=== PATIENT | female | born 1955 | race Caucasian/White ===

== ENCOUNTER 2017-11-02 13:10 | Inpatient (IN) | payer MEDICARE, MEDICAID ==
[~2017-11-02] VITALS: Ht 157.5 cm; Wt 94.3 kg
[~2017-11-02 13:10] MED LIST: ATOR10TA PO; CELE-193 PO; FOLI-43 PO; KEP500T PO; LAMO200T2 PO; PARO40TA45 PO
[2017-11-16 12:18] LABS: BASOPHILS % (AUTO) 0.3 % (0-1); EOSINOPHILS # (AUTO) 0.1 X10'3 (0-0.9); EOSINOPHILS % (AUTO) 1.8 % (0-6); LYMPHOCYTES # (AUTO) 2.5 X10'3 (1.1-4.8); LYMPHOCYTES % (AUTO) 30.9 % (21-51); MEAN CORPUSCULAR HEMOGLOBIN 35.2 PG (27.0-31.0); MEAN CORPUSCULAR HGB CONC 34.7 % (33.0-36.5); MEAN CORPUSCULAR VOLUME 101.4 FL (78-98); MEAN PLATELET VOLUME 6.8 FL (7.4-10.4); MONOCYTES # (AUTO) 0.8 X10'3 (0-0.9); NEUTROPHILS # (AUTO) 4.6 X10'3 (1.8-7.7); PRE OP HEMATOCRIT 40.7 % (35.0-45.0); PRE OP HEMOGLOBIN 14.1 g/dL (12.0-16.0); PRE OP PLATELET COUNT 294 X10'3 (140-440); RED BLOOD COUNT 4.01 X10'6 (4.20-5.60); RED CELL DISTRIBUTION WIDTH 12.4 % (11.5-14.5)
[2017-11-16 12:39] LABS: ALBUMIN 3.9 G/DL (3.4-5.0); ALBUMIN/GLOBULIN RATIO 1.2 (1.1-1.5); ALKALINE PHOSPHATASE 117 IU/L (46-116); BLOOD UREA NITROGEN 21 MG/DL (7-18); BUN/CREATININE RATIO 28.8 (6.6-38.0); CALCIUM 9.4 MG/DL (8.5-10.1); CHLORIDE 105 MMOL/L (99-107); CREATININE 0.73 MG/DL (0.40-0.90); PRE OP ALT 17 U/L (30-65); PRE OP ANION GAP 6 (8-16); PRE OP AST 14 U/L (10-37); PRE OP BILIRUB, TOTAL 0.3 MG/DL (0.0-1.0); PRE OP GLUCOSE 97 MG/DL (70-104); PRE OP POTASSIUM 4.2 MMOL/L (3.4-5.1); PRE OP SODIUM 143 MMOL/L (135-145); TOTAL CARBON DIOXIDE 31.8 MMOL/L (24-32); TOTAL PROTEIN 7.2 G/DL (6.4-8.2); eGFR 81 ML/MIN
[2017-11-16] MEDS ORDERED: CAL/MG/ZINC PO (13:04)
[2017-11-16] MEDS ORDERED: CRAN1CAP9 PO (13:04)
[2017-11-16] MEDS ORDERED: CHOL200016 PO (13:04)
[2017-11-16] MEDS ORDERED: CYAN-19 PO (13:04)
[2017-11-23] MEDS ORDERED: LYR75C PO (10:21)
[2017-11-23] MEDS ORDERED: LEVO25TA2 PO (10:21)
[2017-11-24] VITALS (22 sets, daily range): BP systolic 109–168; BP diastolic 56–98
[2017-11-24] MEDS ORDERED: ringers solution, lacted 1,000 ML IV SCH ×2 (05:00→11:20)
[2017-11-24] MEDS ORDERED: ceFAZolin 2gm in dextrose, iso 100 ML IV ONE (05:30)
[2017-11-24] MEDS ORDERED: famotidine 20mg tablet PO ONE (05:30)
[2017-11-24] MEDS ORDERED: cefazolin/dext.iso 2gm/50ml 50 ML IV ONE (05:30)
[2017-11-24] MEDS ORDERED: VANCOMYCIN INJ 1000 MG in NORMAL SALINE 250ml IV.SOLN IV ONE (05:30)
[2017-11-24] MEDS ORDERED: ROPIVAcaine 0.5% (5mg/ml) 30ml vial ONE ×2 (09:13→10:57)
[2017-11-24] MEDS ORDERED: ketorolac trometh. 30mg/ml inj. ONE (09:13)
[2017-11-24] MEDS ORDERED: sevoflurane 250ml liquid IH ONE (10:05)
[2017-11-24] MEDS ORDERED: EPHEDRINE SULFATE/0.9% NACL/PF 50 MG/5 ML ML IJ ONE (10:05)
[2017-11-24] MEDS ORDERED: atropine 1 MG/1 ML vial ONE (10:05)
[2017-11-24] MEDS ORDERED: cloNIDine hcl/PF 100mcg/ml inj ONE (10:27)
[2017-11-24] MEDS ORDERED: ondansetron/PF 4mg/2ml inj IV PRN ×2 (11:20→12:20)
[2017-11-24] MEDS ORDERED: HYDROmorphone inj. 0.5 MG/0.5 ML DISP.SYRIN IV PRN ×2 (11:20)
[2017-11-24] MEDS ORDERED: meperidine/PF 25mg/ml syringe IV PRN (11:20)
[2017-11-24] MEDS ORDERED: magnesium hydroxide 30ml (MOM) UD suspension PO PRN (12:20)
[2017-11-24] MEDS ORDERED: bisacodyl 10mg suppository rectal RC PRN (12:20)
[2017-11-24] MEDS ORDERED: diphenhydrAMINE 25mg capsule PO PRN (12:20)
[2017-11-24] MEDS ORDERED: acetaminophen 325mg tablet PO PRN (12:20)
[2017-11-24] MEDS ORDERED: metoclopramide 5 mg/ml inj IV PRN (12:20)
[2017-11-24] MEDS ORDERED: CADD PCA waste documentation MC PRN (12:20)
[2017-11-24] MEDS ORDERED: oxyCODONE IR 5mg (immed. release) tablet PO PRN ×2 (12:20)
[2017-11-24] MEDS ORDERED: naloxone 0.4 mg/ml inj IV PRN (12:20)
[2017-11-24] MEDS: meperidine/PF 25mg/ml syringe IV PRN ×4 (12:25→12:49)
[2017-11-24] MEDS: acetaminophen 1,000mg/100ml IV 100 ML IV SCH (12:53)
[2017-11-24] MEDS: HYDROmorphone/NS 1 mg/ml CADD 50 ML IV SCH ×7 (13:00→23:00)
[2017-11-24] MEDS ORDERED: ketorolac trometh. 30mg/ml inj. IV ONE (13:00)
[2017-11-24] MEDS: ceFAZolin 1GM/D5W- ADD-VANTAGE 50 ML IV SCH (16:17)
[2017-11-24] MEDS: potassium cl 20mEq in 1/2 NS 1,000 ML IV SCH ×2 (16:17→20:19)
[2017-11-24] MEDS: sennosides 8.6mg tablet PO SCH (19:31)
[2017-11-24] MEDS: sennosides/docusate sodium tablet PO SCH (19:32)
[2017-11-24] MEDS: pregabalin 75mg capsule PO SCH (19:32)
[2017-11-24] MEDS: ascorbic acid 500mg tablet PO SCH (19:32)
[2017-11-24] MEDS: levetiracetam 250mg tablet PO SCH (19:33)
[2017-11-24] MEDS ORDERED: vancomycin/NS 1 GM ADD-VANTAGE 250 ML IV SCH (20:00)
[2017-11-24] MEDS ORDERED: VITAMIN E ACETATE PO SCH (20:00)
[2017-11-24] MEDS ORDERED: VIT C PO SCH (20:00)
[2017-11-24] MEDS ORDERED: [UNRECOGNIZED DRUG - OTHER] PO SCH (20:00)
[2017-11-24] MEDS: atorvastatin 10mg tablet PO SCH (21:02)
[2017-11-25] MEDS: ceFAZolin 1GM/D5W- ADD-VANTAGE 50 ML IV SCH (00:09)
[2017-11-25] MEDS: HYDROmorphone/NS 1 mg/ml CADD 50 ML IV SCH ×12 (01:00→23:00)
[2017-11-25 02:00] VITALS: BP 110/55
[2017-11-25] MEDS: potassium cl 20mEq in 1/2 NS 1,000 ML IV SCH ×3 (02:57→14:47)
[2017-11-25 05:00] VITALS: BP 117/61
[2017-11-25 05:57] LABS: BASOPHILS % (AUTO) 0.3 % (0-1); EOSINOPHILS % (AUTO) 0 % (0-6); HEMATOCRIT 35.2 % (35.0-45.0); LYMPHOCYTES # (AUTO) 1.6 X10'3 (1.1-4.8); LYMPHOCYTES % (AUTO) 18.8 % (21-51); MEAN CORPUSCULAR HEMOGLOBIN 34.6 PG (27.0-31.0); MEAN CORPUSCULAR HGB CONC 34.1 % (33.0-36.5); MEAN CORPUSCULAR VOLUME 101.3 FL (78-98); MEAN PLATELET VOLUME 6.8 FL (7.4-10.4); MONOCYTES # (AUTO) 1.2 X10'3 (0-0.9); MONOCYTES % (AUTO) 13.8 % (2-12); NEUTROPHILS # (AUTO) 5.7 X10'3 (1.8-7.7); NEUTROPHILS % (AUTO) 67.1 % (42-75); PLATELET COUNT 223 X10'3 (140-440); RED BLOOD COUNT 3.47 X10'6 (4.20-5.60); RED CELL DISTRIBUTION WIDTH 12.3 % (11.5-14.5); WHITE BLOOD COUNT 8.4 X10'3 (4.5-11.0)
[2017-11-25 06:35] LABS: ANION GAP 6 (8-16); CHLORIDE 106 MMOL/L (99-107); POTASSIUM 4.1 MMOL/L (3.5-5.1); SODIUM 143 MMOL/L (135-145); TOTAL CARBON DIOXIDE 31.5 MMOL/L (24-32)
[2017-11-25] MEDS: sennosides/docusate sodium tablet PO SCH ×2 (07:15→20:06)
[2017-11-25] MEDS: folic acid 1mg tablet PO SCH (07:15)
[2017-11-25] MEDS: pregabalin 75mg capsule PO SCH ×2 (07:15→20:06)
[2017-11-25] MEDS: vitamin D (cholecalciferol) 1,000 unit tablet PO SCH (07:15)
[2017-11-25] MEDS: multivitamins, therapeutics tablet PO SCH (07:15)
[2017-11-25] MEDS: levetiracetam 250mg tablet PO SCH ×2 (07:15→20:06)
[2017-11-25] MEDS: levoTHYROXINE 25mcg tablet PO SCH (07:16)
[2017-11-25] MEDS: PARoxetine 20mg tablet PO SCH (07:16)
[2017-11-25] MEDS: ascorbic acid 500mg tablet PO SCH ×2 (07:16→20:06)
[2017-11-25] MEDS: cyanocobalamin 500mcg tablet PO SCH (07:16)
[2017-11-25] MEDS: celeCOXIB 100mg capsule PO SCH (07:16)
[2017-11-25] MEDS: diphenhydrAMINE 25mg capsule PO PRN ×3 (07:43→21:50)
[2017-11-25] MEDS ORDERED: CAL PO SCH (08:00)
[2017-11-25] MEDS ORDERED: ZINC PO SCH (08:00)
[2017-11-25 10:00] VITALS: BP 95/47
[2017-11-25] MEDS: acetaminophen 1,000mg/100ml IV 100 ML IV SCH (12:12)
[2017-11-25 14:00] VITALS: BP 110/49
[2017-11-25] MEDS ORDERED: HYDROcodone/acetaminophen 10/325mg tab PO PRN (15:25)
[2017-11-25] MEDS: HYDROcodone/acetaminophen 10/325mg tab PO PRN ×3 (15:33→23:35)
[2017-11-25 18:00] VITALS: BP 103/51
[2017-11-25] MEDS: sennosides 8.6mg tablet PO SCH (20:05)
[2017-11-25] MEDS: atorvastatin 10mg tablet PO SCH (20:06)
[2017-11-25 22:00] VITALS: BP 107/53
[2017-11-26] MEDS: HYDROmorphone/NS 1 mg/ml CADD 50 ML IV SCH ×3 (01:00→05:00)
[2017-11-26] MEDS: HYDROcodone/acetaminophen 10/325mg tab PO PRN ×5 (03:55→19:59)
[2017-11-26] MEDS: potassium cl 20mEq in 1/2 NS 1,000 ML IV SCH (04:19)
[2017-11-26 05:00] VITALS: BP 123/54
[2017-11-26 06:25] LABS: BASOPHILS % (AUTO) 0.2 % (0-1); EOSINOPHILS # (AUTO) 0.1 X10'3 (0-0.9); EOSINOPHILS % (AUTO) 1.3 % (0-6); HEMOGLOBIN 11.2 g/dl (12.0-16.0); LYMPHOCYTES # (AUTO) 1.9 X10'3 (1.1-4.8); LYMPHOCYTES % (AUTO) 28.3 % (21-51); MEAN CORPUSCULAR HEMOGLOBIN 34.5 PG (27.0-31.0); MEAN CORPUSCULAR VOLUME 101.6 FL (78-98); MEAN PLATELET VOLUME 7.1 FL (7.4-10.4); MONOCYTES % (AUTO) 14.7 % (2-12); NEUTROPHILS # (AUTO) 3.7 X10'3 (1.8-7.7); NEUTROPHILS % (AUTO) 55.5 % (42-75); PLATELET COUNT 194 X10'3 (140-440); RED BLOOD COUNT 3.25 X10'6 (4.20-5.60); RED CELL DISTRIBUTION WIDTH 12.4 % (11.5-14.5); WHITE BLOOD COUNT 6.7 X10'3 (4.5-11.0)
[2017-11-26] MEDS: celeCOXIB 100mg capsule PO SCH (07:09)
[2017-11-26] MEDS: levetiracetam 250mg tablet PO SCH ×2 (07:09→20:00)
[2017-11-26] MEDS: folic acid 1mg tablet PO SCH (07:09)
[2017-11-26] MEDS: multivitamins, therapeutics tablet PO SCH (07:10)
[2017-11-26] MEDS: pregabalin 75mg capsule PO SCH ×2 (07:10→19:59)
[2017-11-26] MEDS: ascorbic acid 500mg tablet PO SCH ×2 (07:10→19:59)
[2017-11-26] MEDS: vitamin D (cholecalciferol) 1,000 unit tablet PO SCH (07:10)
[2017-11-26] MEDS: levoTHYROXINE 25mcg tablet PO SCH (07:10)
[2017-11-26] MEDS: sennosides/docusate sodium tablet PO SCH ×2 (07:10→20:00)
[2017-11-26] MEDS: PARoxetine 20mg tablet PO SCH (07:10)
[2017-11-26] MEDS: cyanocobalamin 500mcg tablet PO SCH (07:10)
[2017-11-26] MEDS ORDERED: aspirin 325mg tablet, delayed-release (Ecotrin) PO ONE (08:45)
[2017-11-26 10:00] VITALS: BP 131/62
[2017-11-26 18:00] VITALS: BP 114/46
[2017-11-26] MEDS: sennosides 8.6mg tablet PO SCH (19:58)
[2017-11-26] MEDS: aspirin 325mg tablet, delayed-release (Ecotrin) PO SCH (19:58)
[2017-11-26] MEDS: atorvastatin 10mg tablet PO SCH (19:59)
[2017-11-26 22:00] VITALS: BP_SYST 105; BP_SYST 114; BP_DIAS 49; BP_DIAS 52
[2017-11-27 02:24] VITALS: BP 145/84
[2017-11-27] MEDS: HYDROcodone/acetaminophen 10/325mg tab PO PRN (03:42)
[2017-11-27 06:00] VITALS: BP 156/82
[2017-11-27 06:07] LABS: BASOPHILS % (AUTO) 0.3 % (0-1); EOSINOPHILS # (AUTO) 0.2 X10'3 (0-0.9); EOSINOPHILS % (AUTO) 2.6 % (0-6); HEMATOCRIT 37.1 % (35.0-45.0); HEMOGLOBIN 12.8 g/dl (12.0-16.0); LYMPHOCYTES # (AUTO) 1.9 X10'3 (1.1-4.8); LYMPHOCYTES % (AUTO) 22.2 % (21-51); MEAN CORPUSCULAR HEMOGLOBIN 35.2 PG (27.0-31.0); MEAN CORPUSCULAR HGB CONC 34.5 % (33.0-36.5); MEAN PLATELET VOLUME 7.2 FL (7.4-10.4); NEUTROPHILS # (AUTO) 5.5 X10'3 (1.8-7.7); NEUTROPHILS % (AUTO) 62.9 % (42-75); PLATELET COUNT 248 X10'3 (140-440); RED BLOOD COUNT 3.64 X10'6 (4.20-5.60); RED CELL DISTRIBUTION WIDTH 12.1 % (11.5-14.5); WHITE BLOOD COUNT 8.7 X10'3 (4.5-11.0)
[2017-11-27] MEDS ORDERED: traMADol 50MG tablet PO PRN (07:10)
[2017-11-27] MEDS ORDERED: acetaminophen 325mg tablet PO PRN (07:10)
[2017-11-27] MEDS: sennosides/docusate sodium tablet PO SCH ×2 (08:00→20:00)
[2017-11-27] MEDS: celeCOXIB 100mg capsule PO SCH (08:41)
[2017-11-27] MEDS: folic acid 1mg tablet PO SCH (08:42)
[2017-11-27] MEDS: aspirin 325mg tablet, delayed-release (Ecotrin) PO SCH ×2 (08:42→20:17)
[2017-11-27] MEDS: levetiracetam 250mg tablet PO SCH ×2 (08:43→20:09)
[2017-11-27] MEDS: PARoxetine 20mg tablet PO SCH (08:43)
[2017-11-27] MEDS: pregabalin 75mg capsule PO SCH ×2 (08:43→20:17)
[2017-11-27] MEDS: cyanocobalamin 500mcg tablet PO SCH (08:44)
[2017-11-27] MEDS: levoTHYROXINE 25mcg tablet PO SCH (08:44)
[2017-11-27] MEDS: vitamin D (cholecalciferol) 1,000 unit tablet PO SCH (08:44)
[2017-11-27] MEDS: ascorbic acid 500mg tablet PO SCH ×2 (08:44→20:17)
[2017-11-27] MEDS: multivitamins, therapeutics tablet PO SCH (08:44)
[2017-11-27 10:00] VITALS: BP 127/98
[2017-11-27] MEDS: traMADol 50MG tablet PO PRN ×2 (11:01→17:58)
[2017-11-27] MEDS: ondansetron 4mg rapidly disintigrating tab PO PRN (13:19)
[2017-11-27] MEDS: lamoTRIgine 100mg tablet PO SCH ×2 (13:19→20:16)
[2017-11-27 15:13] LABS: CLARITY,URINE CLEAR (Clear); COLOR,URINE YELLOW (Yellow); GLUCOSE, URINE NEGATIVE (Neg); KETONES,URINE NEGATIVE (Neg); LEUKOCYTE ESTERASE ,URINE NEGATIVE (Neg); NITRITES, URINE NEGATIVE (Neg); OCCULT BLOOD,URINE NEGATIVE (Neg); PH,URINE 6.5 (4.8-8.0); PROTEIN,URINE NEGATIVE (Neg); UROBILINOGEN,URINE 0.2 E.U/dL (0.2-1.0)
[2017-11-27 15:18] LABS: UA COLLECTION TYPE NON-SPECIFIED
[2017-11-27 18:00] VITALS: BP 131/68
[2017-11-27] MEDS: atorvastatin 10mg tablet PO SCH (20:09)
[2017-11-27] MEDS: sennosides 8.6mg tablet PO SCH (20:19)
[2017-11-27 22:00] VITALS: BP 117/62
[2017-11-28] MEDS: traMADol 50MG tablet PO PRN ×4 (03:33→23:06)
[2017-11-28 06:00] VITALS: BP 135/72
[2017-11-28] MEDS: ondansetron 4mg rapidly disintigrating tab PO PRN (06:41)
[2017-11-28] MEDS: PARoxetine 20mg tablet PO SCH (07:28)
[2017-11-28] MEDS: multivitamins, therapeutics tablet PO SCH (07:28)
[2017-11-28] MEDS: ascorbic acid 500mg tablet PO SCH ×2 (07:28→19:24)
[2017-11-28] MEDS: levetiracetam 250mg tablet PO SCH ×2 (07:28→19:25)
[2017-11-28] MEDS: aspirin 325mg tablet, delayed-release (Ecotrin) PO SCH ×2 (07:29→19:24)
[2017-11-28] MEDS: levoTHYROXINE 25mcg tablet PO SCH (07:29)
[2017-11-28] MEDS: cyanocobalamin 500mcg tablet PO SCH (07:29)
[2017-11-28] MEDS: folic acid 1mg tablet PO SCH (07:29)
[2017-11-28] MEDS: pregabalin 75mg capsule PO SCH ×2 (07:29→19:27)
[2017-11-28] MEDS: celeCOXIB 100mg capsule PO SCH (07:29)
[2017-11-28] MEDS: sennosides/docusate sodium tablet PO SCH ×2 (07:30→20:00)
[2017-11-28] MEDS: vitamin D (cholecalciferol) 1,000 unit tablet PO SCH (07:30)
[2017-11-28] MEDS: lamoTRIgine 100mg tablet PO SCH ×2 (07:31→19:25)
[2017-11-28 10:00] VITALS: BP 113/57
[2017-11-28] MEDS: benzocaine/menthol oral lozeng 1 EACH BOX MM PRN ×2 (12:09→14:29)
[2017-11-28 18:30] VITALS: BP 116/69
[2017-11-28] MEDS: atorvastatin 10mg tablet PO SCH (19:25)
[2017-11-28] MEDS: sennosides 8.6mg tablet PO SCH (21:00)
[2017-11-28 22:00] VITALS: BP 118/60
[2017-11-29] MEDS: benzocaine/menthol oral lozeng 1 EACH BOX MM PRN (02:42)
[2017-11-29] MEDS: traMADol 50MG tablet PO PRN ×2 (05:00→09:51)
[2017-11-29 06:00] VITALS: BP 125/65
[2017-11-29] MEDS: vitamin D (cholecalciferol) 1,000 unit tablet PO SCH (07:47)
[2017-11-29] MEDS: PARoxetine 20mg tablet PO SCH (07:48)
[2017-11-29] MEDS: multivitamins, therapeutics tablet PO SCH (07:48)
[2017-11-29] MEDS: folic acid 1mg tablet PO SCH (07:48)
[2017-11-29] MEDS: levoTHYROXINE 25mcg tablet PO SCH (07:48)
[2017-11-29] MEDS: celeCOXIB 100mg capsule PO SCH (07:48)
[2017-11-29] MEDS: cyanocobalamin 500mcg tablet PO SCH (07:48)
[2017-11-29] MEDS: ascorbic acid 500mg tablet PO SCH (07:48)
[2017-11-29] MEDS: pregabalin 75mg capsule PO SCH (07:48)
[2017-11-29] MEDS: levetiracetam 250mg tablet PO SCH (07:48)
[2017-11-29] MEDS: aspirin 325mg tablet, delayed-release (Ecotrin) PO SCH (07:48)
[2017-11-29] MEDS: sennosides/docusate sodium tablet PO SCH (07:49)
[2017-11-29] MEDS: lamoTRIgine 100mg tablet PO SCH (07:49)
[2017-11-29 10:00] VITALS: BP 115/60
== END 2017-11-29 11:11 | DRG 488 ==
LOC: EDSTATUS 11-16 10:50 → PAS IN 11-24 07:59 → EDSTATUS 11-24 12:00 → ORTHO 4S 11-24 13:47
PROVIDERS: ADMIT Orthopaedic Surgery; ATTEND Orthopaedic Surgery
PROC: 0MQP0ZZ Repair Left Knee Bursa and Ligament, Open Approach (ICD-10-PCS; 2017-11-24)
PROC: 0SUW09Z Supplement Left Knee Joint, Tibial Surface with Liner, Open Approach (ICD-10-PCS; 2017-11-24)
PROC: 0SPD09Z Removal of Liner from Left Knee Joint, Open Approach (ICD-10-PCS; principal; 2017-11-24 10:00)
DX: T84.023A Instability of internal left knee prosthesis, initial encounter (principal); G40.802 Other epilepsy, not intractable, without status epilepticus; E03.9 Hypothyroidism, unspecified; G62.9 Polyneuropathy, unspecified; E78.5 Hyperlipidemia, unspecified; F32.9 Major depressive disorder, single episode, unspecified; G89.29 Other chronic pain; M19.90 Unspecified osteoarthritis, unspecified site; Y79.2 Prosthetic and other implants, materials and accessory orthopedic devices associated with adverse incidents; D50.0 Iron deficiency anemia secondary to blood loss (chronic); Z87.891 Personal history of nicotine dependence
CPT/HCPCS: 36415; 80051; 80053; 81003; 84443; 85025; 87070; 87075; 97110; 97116; 97162; 97530; A6250; A6258; A6449; A7000; C1758; C1776; J0131; J0461; J0690; J0735; J1170; J1885; J2175; J2405; J2795; J3370; J3420; J7030; J7120; L1832; Q0163

== ENCOUNTER 2019-04-17 09:43 | Outpatient (CLI) | payer MEDICARE, MEDICAID ==
[~2019-04-17 09:43] MED LIST changes: +CAL/MG/ZINC PO; +CHOL200016 PO; +CRAN1CAP9 PO; +CYAN100019 PO; +LEVO25TA2 PO; +LYR75C PO
== END 2019-04-17 23:59 | disposition home or self-care (01) ==
LOC: RAD 09:43
DX: G40.909 Epilepsy, unspecified, not intractable, without status epilepticus (principal); Z53.21 Procedure and treatment not carried out due to patient leaving prior to being seen by health care provider

== ENCOUNTER 2020-04-07 09:40 | Outpatient (CLI) | payer MEDICARE, MEDICAID | END 2020-04-07 23:59 | disposition home or self-care (01) | LOC: RAD 09:40 | DX: G40.909 Epilepsy, unspecified, not intractable, without status epilepticus (principal) | CPT/HCPCS: 95819 ==